=== PATIENT | male | born 1990 | race Caucasian/White ===

== ENCOUNTER 2019-10-14 17:56 | Emergency (ER) | payer OTHER ==
[~2019-10-14] VITALS: Ht 182.9 cm; Wt 129.3 kg
[2019-10-14 18:02] VITALS: BP 134/76
--- NOTE | 2019-10-14 18:09 | NUR ---
triage completed, pt ambulated out to ER waiting room.
--- NOTE | 2019-10-14 18:17 | NUR ---
Pt taken to chair luz.
--- NOTE | 2019-10-14 18:18 | NUR ---
PT TO ER CHAIR C
--- NOTE | 2019-10-14 18:26 | NUR ---
29/M PRESENTS TO ED, C/O PRODUCTIVE COUGH WITH BROWN SPUTUM, SORE THROAT, X2 WEEKS. DENIES N/V/D. PT AWAKE AND ALERT, SKIN NORMAL COLOR WARM AND DRY, RR EVEN AND UNLABORED. LUNG SOUNDS CLEAR BL. DENIES MED HX OR RX. OTC TYLENOL, THERAFLU, COUGH DROPS
[2019-10-14] MEDS ORDERED: DEXAMETHASONE 10 MG/ML VIAL IM ONE (18:30)
--- NOTE | 2019-10-14 18:47 | NUR ---
Patient discharged with v/s stable. Written and verbal after care instructions given and explained. Patient alert, oriented and verbalized understanding of instructions. Ambulatory with steady gait. All questions addressed prior to discharge. ID band removed. Patient advised to follow up with PMD. Rx of MEDROL DOSEPAK, PROMETHAZINE DM, ALBUTEROL INH given. Patient educated on indication of medication including possible reaction and side effects. Opportunity to ask questions provided and answered.
== END 2019-10-14 18:47 | disposition home or self-care (01) ==
LOC: MED 17:56
DX: J40 Bronchitis, not specified as acute or chronic (principal); Z88.1 Allergy status to other antibiotic agents
CPT/HCPCS: 96372; 99283; J1100

== ENCOUNTER 2019-10-22 09:52 | Emergency (ER) | payer OTHER ==
[~2019-10-22] VITALS: Ht 182.9 cm; Wt 129.3 kg
[2019-10-22 09:55] VITALS: BP 127/83
--- NOTE | 2019-10-22 10:00 | NUR ---
29 Y/O M C/C OF BILATERAL BACK PAIN X2 DAYS. PER PT HX OF KIDNEY STONES. PAIN 7/10;SHARP. PT HAS NOT TAKEN ANY MEDICATION FOR PAIN. ALLERGIES PNC. HX BRONCHITIS, KIDNEY STONES. RX NONE. NO N/V/D. SIDE RAIL X1. FAMILY AT BEDSIDE.
--- NOTE | 2019-10-22 10:11 | NUR ---
DR MCFARLAND AT BEDSIDE
[2019-10-22] MEDS ORDERED: HYDROcodone/APAP 5/325 MG 1 TAB TAB PO ONE (10:15)
[2019-10-22] MEDS ORDERED: KETOROLAC 30 MG/ML VIAL IM ONE (10:15)
--- NOTE | 2019-10-22 10:22 | NUR ---
PT TAKEN TO CT VIA WHEELCHAIR
--- NOTE | 2019-10-22 10:46 | NUR ---
PT BACK FROM CT VIA WHEELCHAIR
--- NOTE | 2019-10-22 11:41 | NUR ---
PT RESTING IN BED, SIDE RAIL X1.
[2019-10-22 11:59] VITALS: BP 127/83
--- NOTE | 2019-10-22 11:59 | NUR ---
Patient discharged with v/s stable. Written and verbal after care instructions given and explained. Patient alert, oriented and verbalized understanding of instructions. Ambulatory with steady gait. All questions addressed prior to discharge. ID band removed. Patient advised to follow up with PMD. Rx of TYLENOL,IBUPROFEN given. Patient educated on indication of medication including possible reaction and side effects. Opportunity to ask questions provided and answered.
== END 2019-10-22 11:59 | disposition home or self-care (01) ==
LOC: MED 09:52
DX: R10.9 Unspecified abdominal pain (principal)
CPT/HCPCS: 74176; 96372; 99284; J1885; 81002